=== PATIENT | female | born 1965 | race Hispanic/Latino ===

== ENCOUNTER 2023-06-23 15:05 | Emergency (ER) | payer OTHER ==
[2023-06-23] MEDS ORDERED: Acetaminophen 500 MG TAB ONE (19:48)
== END 2023-06-23 19:55 | disposition home or self-care (01) ==
LOC: CSHERS 15:05
DX: S09.90XA Unspecified injury of head, initial encounter (principal); M54.2 Cervicalgia; M62.830 Muscle spasm of back; I10 Essential (primary) hypertension; V89.2XXA Person injured in unspecified motor-vehicle accident, traffic, initial encounter
CPT/HCPCS: 70450; 72125